=== PATIENT | female | born 1945 | race Caucasian/White ===

== ENCOUNTER 2016-09-13 17:17 | Emergency (ER) | payer OTHER, MEDICARE ==
[2016-09-13 17:28] VITALS: BP 119/88; PULSE 82; TEMP 97.4; BMI 29.0
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
== END 2016-09-13 20:37 | disposition home or self-care (01) ==
LOC: FER 17:17
DX: S09.90XA Unspecified injury of head, initial encounter (principal); V19.3XXA Pedal cyclist (driver) (passenger) injured in unspecified nontraffic accident, initial encounter; Y93.55 Activity, bike riding; Y92.410 Unspecified street and highway as the place of occurrence of the external cause; Z85.3 Personal history of malignant neoplasm of breast; G89.29 Other chronic pain
CPT/HCPCS: 70450-TC; 71020-TC; 71101-TC-RT; 72125-TC; 72170-TC; 73502-TC-RT; 99282-25

== ENCOUNTER 2016-11-01 07:04 | Day surgery (SDC) | payer OTHER, MEDICARE ==
[2016-10-30 13:10] VITALS: BMI 29.3
[2016-11-01] MEDS ORDERED: PROPOFOL 20 ML ONE (09:41)
[2016-11-01] MEDS ORDERED: ROCURONIUM BROMIDE 50 MG/5 ML VIAL ONE (09:42)
[2016-11-01] MEDS ORDERED: MIDAZOLAM HCL 2 MG/2 ML SINGLE DOSE VIAL ONE ×2 (09:42)
[2016-11-01] MEDS ORDERED: LIDOCAINE HCL/PF 2% SDV 5ML VIAL ONE (09:44)
[2016-11-01] MEDS ORDERED: ceFAZolin SODIUM 1 GM VIAL ONE (09:44)
[2016-11-01] MEDS ORDERED: ACETAMINOPHEN INJECTION 100 ML IVPB ONE (09:58)
[2016-11-01] MEDS ORDERED: GLYCOPYRROLATE 0.2 MG/1 ML VIAL ONE (11:11)
[2016-11-01] MEDS ORDERED: KETOROLAC TROMETHAMINE 30 MG/1 ML VIAL ONE (11:11)
[2016-11-01] MEDS ORDERED: ONDANSETRON 4 MG/2 ML VIAL ONE (11:11)
[2016-11-01] MEDS ORDERED: NEOSTIGMINE METHYLSULFATE 0.5 MG/ML - 10 ML MDV ONE (11:12)
[2016-11-01] MEDS ORDERED: ePHEDrine SULFATE 50 MG/1 ML AMPULE ONE (11:15)
[2016-11-01] MEDS ORDERED: ONDANSETRON 4 MG/2 ML VIAL IVPUSH PRN (11:44)
[2016-11-01] MEDS ORDERED: PROMETHAZINE HCL 25 MG/1 ML VIAL IVPUSH PRN (11:44)
[2016-11-01] MEDS ORDERED: LACTATED RINGERS SOLUTION 1,000 ML IV SCH (11:45)
[2016-11-01] MEDS ORDERED: ACETAMINOPHEN 1000 MG/100 ML VIAL (NON FORMULARY) IVPB ONE (14:00)
[2016-11-01] MEDS ORDERED: morphine CARPU-JECT 4 MG/1 ML DISP.SYRIN IVPB PRN (15:29)
[2016-11-01] MEDS ORDERED: D5-1/2NS+20 MEQ KCL - 1,000 ML IV SCH (15:30)
[2016-11-01] MEDS ORDERED: KETOROLAC TROMETHAMINE 15 MG/ML VIAL IVPUSH PRN (15:30)
[2016-11-01] MEDS ORDERED: oxyCODONE HCL 5 MG TABLET PO PRN (15:31)
[2016-11-01] MEDS ORDERED: ACETAMINOPHEN 325 MG TABLET (FP) PO PRN (16:00)
[2016-11-01] MEDS: FAMOTIDINE 20 MG TABLET PO SCH (21:39)
[2016-11-02 06:43] VITALS: BP 93/58; PULSE 50; TEMP 98.5
[2016-11-02] MEDS: FAMOTIDINE 20 MG TABLET PO SCH (09:29)
[2016-11-02] MEDS ORDERED: ENOXAPARIN NA (PORCINE) 40 MG/0.4 ML DISP.SYRIN SQ SCH (10:00)
--- NOTE | 2016-11-04 10:46 | OP ---
DATE OF OPERATION: 11/01/2016 PREOPERATIVE DIAGNOSIS: Gallbladder mass. POSTOPERATIVE DIAGNOSIS: Gallbladder mass. PROCEDURE: Laparoscopic cholecystectomy, peritoneal lavage. SURGEON: Bertram Roman MD BAG PRESSER: Roderick Shafer MD ANESTHESIA: Jeffrey Madsen MD (general), ESTIMATED BLOOD LOSS: Minimal. SPECIMEN: None. DESCRIPTION OF PROCEDURE: This is a 71-year-old female who on routine workup for other issues was noted to have a mass in her gallbladder. She is here today for a laparoscopic cholecystectomy. Patient was identified and appropriately positioned on the operating room table. After placement of general anesthesia, the abdomen was prepped and draped in the usual sterile fashion with ChloraPrep. An infraumbilical incision was made deep into the subcutaneous tissues. The fascia was divided sharply, the peritoneum incised, and under direct vision, a Veress needle followed by a structural needle placed. The remaining three were placed under direct vision, as well. . The gallbladder was identified in the right upper quadrant. It was reflected over the dome of the liver in standard fashion. Going from lateral to medial, the neck and the infundibulum of the gallbladder were identified, followed by the cystic duct. The cystic duct was circumferentially isolated, clipped, and then subsequently divided. The cystic artery was identified in a similar fashion, isolated, clipped, and then divided. The gallbladder itself was removed from the liver bed with electrocautery. Prior to complete removal, the liver bed was irrigated, the operative field examined, noted to be hemostatic. The ports were removed. Port sites were hemostatic. The specimen was brought out through the umbilical port site. The fascia at the umbilical port site was reapproximated with interrupted 0 Vicryl suture. All skin closed with 4-0 subcuticular Biosyn followed by Dermabond. At the conclusion of the case, sponge and instrument counts were correct. ATTESTATION: Brief operative note handwritten on the preprinted form. [facility] queried prior to giving any narcotics. Vandana BARKER [id number] cc: MD Zane Pérez MD
--- NOTE | 2016-11-04 12:55 | PATH ---
Surgical Pathology Report Patient Name: LESLIE CROOK [facility]. Rec. #: [id number] /Age/Gender: 1945 (Age: 71) / F Account: [id number] Location: [facility] Taken: 11/01/2016 Received: 11/01/2016 Reported: 11/04/2016 Physicians: Bertram Roman Specimen(s) Received GALLBLADDER WITH POSSIBLE MASS Clinical History Gallbladder mass Final Diagnosis GALLBLADDER WITH POSSIBLE MASS, CHOLECYSTECTOMY: GALLBLADDER SHOWING CHRONIC CHOLECYSTITIS AND ADENOMYOMATOUS HYPERPLASIA. Electronically Signed Jessica Shen M.D. Gross Description Received in formalin, labeled "gallbladder possible mass," is a 7.5 x 2.5 x 2.2 cm. gallbladder with a 0.2 cm. in length portion of cystic duct attached. The outer surface is elise-yellow and varies from smooth to shaggy. The lumen contains green, tenacious bile. No choleliths are identified. The mucosa is elise-green and velvety. The gallbladder fundus displays a 1.4 x 1.1 cm cystic lesion. The wall of the gallbladder averages 0.1 cm. in thickness. Sustainability Engineer sections are submitted in 3 cassettes as follows: 1-cystic duct margin and outside sales account representative mucosa; 2-3-fundic lesion. 11/01/201611/01/2016
== END 2016-11-02 11:00 | disposition home or self-care (01) ==
LOC: FASU 07:04 → FM/S 14:36 → FASU 11-02 11:00
PROVIDERS: ATTEND Surgery
PROC: 0FT44ZZ Resection of Gallbladder, Percutaneous Endoscopic Approach (ICD-10-PCS; principal; 2016-11-01 11:01)
DX: K82.8 Other specified diseases of gallbladder (principal)
CPT/HCPCS: 88304-TC; 94760

== ENCOUNTER 2018-10-07 06:07 | Inpatient (IN) | payer OTHER, MEDICARE ==
[2018-10-05 08:47] VITALS: BMI 29.9
[2018-10-07] MEDS ORDERED: PROPOFOL 20 ML ONE (07:14)
[2018-10-07] MEDS ORDERED: fentaNYL CITRATE 250 MCG/5 ML VIAL ONE (07:14)
[2018-10-07] MEDS ORDERED: DEXAMETHASONE SOD PHOSPHATE 4 MG/1 ML VIAL ONE (07:14)
[2018-10-07] MEDS ORDERED: ONDANSETRON 4 MG/2 ML VIAL ONE (07:14)
[2018-10-07] MEDS ORDERED: LIDOCAINE HCL/PF 2% SDV 5ML VIAL ONE (07:14)
[2018-10-07] MEDS ORDERED: ROCURONIUM BROMIDE 50 MG/5 ML VIAL ONE ×2 (07:14→08:34)
[2018-10-07] MEDS ORDERED: SUCCINYLCHOLINE CHLORIDE 200 MG/10 ML VIAL ONE (07:14)
[2018-10-07] MEDS ORDERED: BUPIVACAINE LIPOSOME/PF (EXPAREL) 266 MG/20 ML VIAL ONE (07:34)
[2018-10-07] MEDS ORDERED: MIDAZOLAM HCL 2 MG/2 ML SINGLE DOSE VIAL ONE (07:34)
[2018-10-07] MEDS ORDERED: BUPIVACAINE HCL/PF (5 MG/ML) 30 ML VIAL IJ ONE (07:34)
[2018-10-07] MEDS ORDERED: ceFAZolin SODIUM 1 GM VIAL ONE (08:20)
[2018-10-07] MEDS ORDERED: ePHEDrine SULFATE 50 MG/1 ML AMPULE ONE (08:22)
[2018-10-07] MEDS ORDERED: GLYCOPYRROLATE 0.2 MG/1 ML VIAL ONE (09:13)
[2018-10-07] MEDS ORDERED: NEOSTIGMINE METHYLSULFATE 0.5 MG/ML - 10 ML MDV ONE (09:13)
--- NOTE | 2018-10-07 10:59 | OP ---
DATE OF OPERATION: 10/07/2018 PREOPERATIVE DIAGNOSIS: Chronically incarcerated symptomatic left Spigelian hernia. POSTOPERATIVE DIAGNOSIS: Chronically incarcerated symptomatic left Spigelian hernia. PROCEDURE: Open left-sided component separation, repair of left incarcerated Spigelian hernia with mesh, 7 cm intermediate wound closure. SURGEON: Bertram Roman MD PENSIONHOLDER INFORMATION CLERK: Roderick Shafer MD ANESTHESIA: Cristine Ji MD (general). ESTIMATED BLOOD LOSS: Minimal. SPECIMEN: None. INDICATIONS FOR PROCEDURE: This is a 73-year-old female with a slight protrusion and discomfort in the left side of her abdomen. She underwent a CAT scan that demonstrated findings consistent with a Spigelian hernia. She is now here for operative repair. PROCEDURE: Patient identified and appropriately positioned on the operating room table after placement of general anesthesia and prepped and draped in the usual sterile fashion with ChloraPrep. A 7 cm left oblique incision was made in the lower abdomen deepened to the subcutaneous tissue. The fascia of the external oblique identified, divided in the direction of its fibers. Next, the oblique was then lifted off the oblique musculature with blunt dissection toward the midline. At the level going toward the midline, it was significantly scarred due to a previous lower midline laparotomy scar. This dissection went medial and lateral. Next, the external oblique along with the internal oblique muscle was then subsequently split and it was obvious once this was accomplished that the patient had an incarcerated Spigelian hernia. This reduced back in through the defect very easily at this point, since the patient was under general anesthesia. The internal oblique muscle now lifted and dissection laterally ensued towards the folding/inguinal ligament of the external oblique. Medially, this was then taken again towards the rectus and at this juncture a mild fascial separation was performed to allow separation of the transversus fascia and oblique fascia from the rectus fascia. This was done approximately 4 inches above and below the defect. The transversalis and transversus was significantly attenuated in this lady; however, the transversalis fascia superiorly at the semi-lunar line was easily identified. Inferiorly, this was markedly attenuated and was subsequently grasped with an Allis clamp. The 2 attenuated pieces of fascia were then reapproximated with interrupted 3-0 PDS suture. The space deep to the obliques just above the transversus was further developed and the myofascial separation that was performed was reevaluated. The area was hemostatic. A piece of phasics was sewn to a 15 x 15 piece of ProGrip. The 2 were sewn with interrupted 3-0 Vicryl sutures. The phasics was placed on the transversalis side and the ProGrip was placed with the reference assistant up towards the obliques. This was placed into the space. Once it was fanned out and covered the defect well, the patient was placed through several Valsalva maneuvers to sit the mesh. Next, the musculature overlying the mesh was then allowed to cover the mesh (it was previously split, but not divided). Next, the fascia of the obliques was already off the musculature and another 15 x 15 piece of ProGrip was placed with the park interpretive specialist side on towards the muscle surface. The fascia of the external oblique was then reapproximated with a running 0 PDS suture. The subcutaneous space irrigated. Daniel reapproximated with interrupted inverted 3 -0 chromic sutures and the skin closed with 4-0 simple interrupted Biosyn, followed by Dermabond. Length of the incision approximately 7 cm. At the conclusion of this case, sponge and needle counts were correct. ATTESTATION: Brief Op Note handwritten on the preprinted form. [facility] queried prior to giving narcotics. Vandana BARKER [id number] MTDD
[2018-10-07] MEDS ORDERED: morphine SULFATE 4 MG/ML VIAL IVPB PRN (11:06)
[2018-10-07] MEDS ORDERED: oxyCODONE HCL 5 MG TABLET PO PRN (11:06)
[2018-10-07] MEDS ORDERED: ONDANSETRON 4 MG/2 ML VIAL IVPUSH PRN (11:06)
[2018-10-07] MEDS ORDERED: SODIUM CHLORIDE 1,000 ML IV SCH (11:15)
[2018-10-07] MEDS ORDERED: LACTATED RINGERS SOLUTION 1,000 ML IV SCH (11:15)
[2018-10-07] MEDS: ACETAMINOPHEN 325 MG TABLET (FP) PO PRN (14:37)
[2018-10-08 06:41] VITALS: TEMP 98.3
[2018-10-08] MEDS ORDERED: PANTOPRAZOLE SODIUM 40 MG VIAL IVPUSH SCH (10:00)
[2018-10-08] MEDS ORDERED: ENOXAPARIN NA (PORCINE) 40 MG/0.4 ML DISP.SYRIN SQ SCH (10:00)
[2018-10-08] MEDS: ACETAMINOPHEN 325 MG TABLET (FP) PO PRN (10:46)
[2018-10-08 11:40] VITALS: BP 95/48; PULSE 58
--- NOTE | 2018-10-09 07:06 | DS ---
DATE OF ADMISSION: 10/07/2018 DATE OF DISCHARGE: 10/08/2018 ADMITTING DIAGNOSIS: Complex ventral hernia. DISCHARGE DIAGNOSIS: Complex ventral hernia. BRIEF HISTORY: This is a 73-year-old female who was admitted to [facility] for surgical management of a complex ventral hernia. She was admitted on October 07, 2018, underwent complex repair of a ventral hernia with mesh utilizing component separation and myofascial release. Please reference Dr. Bertram Spain operative report. She was admitted on October 07. She is being discharged October 08. She is tolerating a regular diet. She is ambulating. She is voiding. She will go home with a prescription for Percocet which she will take as needed for pain. She is okay to shower. She will not to lift anything more than 20 pounds. She is okay to drive. She will likely take off 2 weeks for work. She will resume her home medications, and she will take her new prescription for Percocet. She will follow up with Dr. Bertram Roman in approximately 2 weeks time for a postoperative check. DO MANUELA BOB/[id number]
== END 2018-10-08 11:05 | disposition home or self-care (01) | DRG 355 ==
LOC: FASU 06:07 → FM/S 11:06 → UNDOADMIN 11:30
PROVIDERS: ADMIT Surgery; ATTEND Surgery
PROC: 0WUF0JZ Supplement Abdominal Wall with Synthetic Substitute, Open Approach (ICD-10-PCS; principal; 2018-10-07 08:31)
DX: K43.6 Other and unspecified ventral hernia with obstruction, without gangrene (principal); Z85.3 Personal history of malignant neoplasm of breast; M17.10 Unilateral primary osteoarthritis, unspecified knee; E78.5 Hyperlipidemia, unspecified; D35.00 Benign neoplasm of unspecified adrenal gland; H00.014 Hordeolum externum left upper eyelid
CPT/HCPCS: 94760; J7030

== ENCOUNTER 2019-05-13 19:22 | Emergency (ER) | payer OTHER, MEDICARE ==
[2019-05-13 19:30] VITALS: BP 115/77; PULSE 89; TEMP 98; BMI 29.0
--- NOTE | 2019-05-13 19:52 | PDOC ---
Documentation entered by Soledad Padron SCRIBE, acting as scribe for Kirill Eid MD. Kirill Eid MD: This documentation has been prepared by the Vito morgan Brenda, SCRIBE, under my direction and personally reviewed by me in its entirety. I confirm that the documentation accurately reflects all work , treatment, procedures, and medical decision making performed by me. History of Present Illness - General Chief Complaint: Injury Stated Complaint: INJURY Time Seen by Provider: 05/13/19 19:33 History Source: Patient Exam Limitations: No Limitations - History of Present Illness Initial Comments: 05/13/19 19:55 The patient is a 73 year old female, with a significant PMH of right mastectomy for breast cancer several years ago and a C7 fracture with chronic neck pain since 2011, who presents to the emergency department after a fall. Patient states she fell down her steps, striking her posterior right occipital area on a piece of round wood which she endorses pain to, and striking right buttocks on the floor. The patient denies neck pain, stating she has had neck traumas before. Denies chest pain, shortness of breath, headache and dizziness. Denies blurry vision, LOC. Denies fever, chills, nausea, vomiting, diarrhea and constipation. Denies any urinary symptoms. Allergies: NKA Past surgical history: Mastectomy. Social history: Denies any tobacco use, alcohol use, or illicit drug use. Lives alone General: No fevers or chills, no weakness, no weight loss HEENT: (+) Pain on right side of hind head. No change in vision. No sore throat ,. No ear pain CardioVascular: No chest pain or shortness of breath Respiratory:No cough, or wheezing. Gastrointestinal: no nausea, vomiting, diarrhea or constipation, No rectal bleeding Genitourinary: No dysuria, hematuria, or frequency Musculoskeletal: No joint or muscle pain or swelling Neurologic: No headache, vertigo, dizziness or loss of consciousness Psychiatric: nor depression Skin: No rashes or easy bruising Endocrine: no increased thirst or abnormal weight change Allergic: no skin or latex allergy All other systems reviewed and normal GENERAL: The patient is awake, alert, and fully oriented, in no acute distress. HEAD: Normal with no signs of trauma. EYES: Pupils equal, round and reactive to light, extraocular movements intact, sclera anicteric, conjunctiva clear. EXTREMITIES: Normal range of motion, no edema. PSYCH: Normal mood, normal affect. SKIN: Warm, Dry, normal turgor, no rashes or lesions noted. NEURO: (+) Tenderness to palpation on right posterior occipital area. No Cervical Spine tenderness Mental status: The patient alert and is oriented x3. Cranial nerves: Cranial nerves II through XII are intact Fundoscopic exam normal Motor: The upper extremities are 5 over 5 in all muscle groups. The lower extremities are 5 over 5 in all muscle groups. Sensation: Sensation is intact to light touch throughout. Cerebellar: [id number] is normal in both upper extremities. Heel-knee- he is normal in both lower extremities. Gait: Normal. Heel and toe walking are normal. Tandem gait is normal. 05/14/19 20:27 Assessment plan: This is 73-year-old female who comes in post slipping on the stairs falling backward and hitting her head on the wood railing of the steps. Patient did not pass out. Patient denies any headache, neck pain or neurological complaints. On my exam there is no contusion or abrasion of the scalp where she hit her head there was some mild bony tenderness There was no tenderness of the cervical spine. Patient discharged we will follow-up with her primary care doctor. Past History - Past Medical History Allergies/Adverse Reactions: Allergies Allergy/AdvReac Type Severity Reaction Status Date / Time No Known Drug Allergies Allergy Verified 10/05/18 08:41 No Known Allergies Allergy Uncoded 10/05/18 08:41 Home Medications: Ambulatory Orders NK [No Known Home Medication] 05/13/19 Anemia: No Asthma: No Cancer: Yes (RIGHT BREAST-2012) Cardiac Disorders: No CVA: No COPD: No CHF: No Dementia: No Diabetes: No GI Disorders: No Disorders: No HTN: No Hypercholesterolemia: No Liver Disease: No Seizures: No Thyroid Disease: No - Surgical History Abdominal Surgery: Yes (C- SECTION X 1) Appendectomy: No Cardiac Surgery: No Cholecystectomy: Yes Lung Surgery: No Neurologic Surgery: No Orthopedic Surgery: No - Psycho Social/Smoking Cessation Hx Smoking History: Never smoked Have you smoked in the past 12 months: No If you are a former smoker, when did you quit?: 1985 Hx Alcohol Use: Yes (1 GLASS WINE DAILY) Drug/Substance Use Hx: No Substance Use Type: Alcohol Hx Substance Use Treatment: No *Physical Exam - Vital Signs Last Vital Signs Temp Pulse Resp BP Pulse Ox 98 F 89 16 115/77 96 05/13/19 19:27 05/13/19 19:27 05/13/19 19:27 05/13/19 19:27 05/13/19 19:27 Discharge - Discharge Information Problems reviewed: Yes Clinical Impression/Diagnosis: Fall (on) (from) other stairs and steps, initial encounter Contusion of scalp Qualifiers: Encounter type: initial encounter Qualified Code(s): S00.03XA - Contusion of scalp, initial encounter Condition: Stable Disposition: HOME - Admission No - Follow up/Referral - Patient Discharge Instructions Additional Instructions: For the pain take Tylenol 1000 mg as often this 3-4 times a day if needed. Return to the emergency department immediately with ANY new, persistent or worsening symptoms. Specifically any vomiting, headache, nausea, blurry vision or difficulty concentrating. Continue any medications as previously prescribed by your physician. You should follow up with your primary doctor as soon as possible regarding today's emergency department visit. . Please make sure your doctor reviews the results of your emergency evaluation. Thank you for coming to the Emergency Department today for your care. It was a pleasure to see you today. Please note that your evaluation is INCOMPLETE until you follow-up with your doctor. - Post Discharge Activity
== END 2019-05-13 19:59 | disposition home or self-care (01) ==
LOC: FER 19:22
DX: S00.03XA Contusion of scalp, initial encounter (principal); Z85.3 Personal history of malignant neoplasm of breast; Z90.11 Acquired absence of right breast and nipple; W10.9XXA Fall (on) (from) unspecified stairs and steps, initial encounter; Y93.89 Activity, other specified; Y92.9 Unspecified place or not applicable
CPT/HCPCS: 99281-25

== ENCOUNTER 2020-01-12 13:21 | Emergency (ER) | payer OTHER, MEDICARE ==
[2020-01-12 13:30] VITALS: BP 101/70; PULSE 73; TEMP 98.5; BMI 29.0
--- NOTE | 2020-01-12 13:45 | PDOC ---
History of Present Illness - General Chief Complaint: Headache Stated Complaint: EVALUATION OF HEADACHE Time Seen by Provider: 01/12/20 13:41 History Source: Patient Exam Limitations: No Limitations - History of Present Illness Initial Comments: 01/12/20 13:43 HPI 74 YOF with h/o right mastectomy for breast cancer, T7 fracture and odontoid fx with chronic neck pain since 2011, arthritis presenting with right sided throbbing/pressure-like headache beginning last night approx 5pm in the evening. Pt states her headache is radiating from the right side of the head down to the ear and neck, worse with positional changes such as bending forward and down to tie her shoes; her headache was constant x 6 hours until approx 11PM when she went to bed after a dose of tylenol with improvement. Also in the evening she had a transient episode in her left eye where she saw a kaleidoscope, no association of pain or vision loss or curtain or swellling. This morning she had another episode of right sided headache, also described as throbbing and pressure-like, in the same distribution down her right face/ear and neck, worse with positional changes as well as the "kaleidoscope" in her left eye without associated visual changes. currently she states her headache is only 3-4/10, declining any analgesia at this time. she went to urgent care [facility], who referred her to the ED for further evaluation. Denies fever, chills, chest pain, SOB, palpitation, N, V, D, abdominal pain, bladder and bowel problems, focal weakness/paresthesias, speech difficulties, memory loss or gait instability, leg swelling/pain, rash. No sick contacts or travel. No new changes in medications. No suspicious food intake. No trauma. no infectious symptoms. Allergies: None Past Medical History/PSH: as above Social history: Lives with family. No tobacco, ETOH or drug use. Meds: none PMD: Dr Garber Review of systems Constitutional: no fevers or chills. No weakness HEENT: no dizziness. No congestion. No hearing disturbances. +headache. +ear pain, +left eye vision changes "kaleidoscope." CVS: no cp or syncope. Resp: no sob. No cough. Gastrointestinal: no abdominal pain, nausea, vomiting, diarrhea. Genitourinary: no urinary sx, hematuria. MUSCULOSKELETAL: No joint pain and swelling. No neck or back pain. SKIN: no redness or skin changes, no discharge, no rash. No wounds. Hematologic: no easy bruising/bleeding. NEUROLOGIC: No dizziness, LOC or altered mental status. No weakness, numbness or tingling. no gait instability, memory changes or speech difficulties. Allergic/Immunologic: no allergies All other systems reviewed and negative, or as documented in HPI. Physical exam General: Well appearing, awake and alert, NAD. HEENT: NCAT, PERRL, EOMI, clear conjunctiva, anicteric, moist mucus membranes, clear oropharynx, no oral lesions.. Neck: neck supple, FROM, no meningismus Resp: CTAB, normal and even respirations, no respiratory distress CVS: RRR, no murmurs, 2+ peripheral pulses throughout, no peripheral edema Abdomen: soft, NTND, no rebound or guarding. Back: nontender, normal inspection and ROM MSK: no edema, CHRISTIANSON x4, ROM intact. No clubbing or cyanosis. normal bulk and tone. Extremities: no calf tenderness Neuro: Alert, oriented to person time and place. No carotid bruit, CN II-XII grossly intact. Strength prox and distally 5/5 throughout. Sensation grossly intact to light touch. CHRISTIANSON x4. No cerebellar signs, no dysmetria, bilateral finger to nose and heel to he equal and symmetric. Speech clear. Psych: Calm and cooperative Skin: warm and well perfused, cap refill <2 sec, normal color, no rash or skin discoloration. 01/12/20 14:02 01/12/20 14:11 01/12/20 15:58 01/12/20 16:00 Past History - Medical History Allergies/Adverse Reactions: Allergies Allergy/AdvReac Type Severity Reaction Status Date / Time No Known Drug Allergies Allergy Verified 01/12/20 13:22 Home Medications: Ambulatory Orders NK [No Known Home Medication] 01/12/20 Anemia: No Asthma: No Cancer: Yes (RIGHT BREAST-2012) Cardiac Disorders: No CVA: No COPD: No CHF: No Dementia: No Diabetes: No GI Disorders: No Disorders: No HTN: No Hypercholesterolemia: No Liver Disease: No Seizures: No Thyroid Disease: No - Surgical History Abdominal Surgery: Yes (C- SECTION X 1) Appendectomy: No Cardiac Surgery: No Cholecystectomy: Yes Lung Surgery: No Neurologic Surgery: No Orthopedic Surgery: No - Psycho-Social/Smoking History Smoking History: Never smoked Have you smoked in the past 12 months: No If you are a former smoker, when did you quit?: 1985 Information on smoking cessation initiated: No - Substance Abuse Hx (Audit-C & DAST Scrn) How often the patient has a drink containing alcohol: 4 0r more times/wk Number of drinks the patient has on a typical day: 1 or 2 How often the patient has six or more drinks on one occasion: Never Score: In Men: 4 or > Positive; In Women: 3 or > Positive: 4 Screen Result (Pos requires Nsg. Audit-10AR): Positive In the last yr the pt used illegal drug/Rx for NonMed reason: No Score: Yes response is considered Positive: 0 Screen Result (Positive result requires Nsg. DAST-10): Negative *Physical Exam - Vital Signs Last Vital Signs Temp Pulse Resp BP Pulse Ox 98.5 F 73 16 101/70 97 01/12/20 13:22 01/12/20 13:22 01/12/20 13:22 01/12/20 13:22 01/12/20 13:22 Heart Score/ECG Review #1 ECG reviewed & interpreted by me at: 14:00 General ECG Interpretation: Sinus Rhythm, Normal Rate, Normal Intervals 01/12/20 14:08 EKG normal sinus rhythm 65 bpm, no interval abnormalities, narrow QRS, ST and T wave segments and morphology normal. ED Treatment Course - LABORATORY CBC & Chemistry Diagram: 01/12/20 13:55 01/12/20 13:55 - RADIOLOGY Radiology Studies Ordered: Category Date Time Status HEAD CT WITHOUT CONTRAST [CT] Stat CT Scan 01/12/20 13:42 Ordered Medical Decision Making - Medical Decision Making 01/12/20 14:08 Vital Signs Temp Pulse Resp BP Pulse Ox 98.5 F 73 16 101/70 97 01/12/20 13:22 01/12/20 13:22 01/12/20 13:22 01/12/20 13:22 01/12/20 13:22 DDX headache: migraine, tension, cluster headache, SAH, CVA, head bleed/ICH, temporal arteritis pt does not describe as "worst headache of life. doubt SAH clinically, neuro intact no e/o meningismus or meningitis or encephalitis. atraumatic. no HTN. no medical comorbidities to suggest CVA risk or vascular pathology no IC state, no active malignancy Headache since yesterday evening. There is not a history of anticoagulation, trauma, , cancer or immunocompromised state. Mental status was normal, no neurological deficits were noted. no meds requested, declined analgesia. CT head was negative for acute bleed, infarct, mass, or shift. no LP indicated at this time MDM: Based on the patient's history and physical there is very low clinical barron picion for significant intracranial pathology. The headache was NOT sudden onset, NOT maximal at onset, there are NO neurologic findings, the patient does NOT have a fever, the patient does NOT have any jaw claudication, the patient does NOT endorse a clotting disorder, patient DENIES any trauma or eye pain and the headache is NOT associated with dizziness or ataxia. Will treatment the patient symptomatically and reassess. Kernig and Brudzinski signs are negative, no petechiae, no photophobia, no dysarthria, no facial asymmetry, and no focal deficits. Very low clinical suspicion for meningitis. Patient denies new weakness on one side of the body, diplopia, vertigo, slurred speech, headache, or difficulty walking. 01/12/20 15:44 CT head without acute intracranial pathology, no evidence of mass lesion, infarction, fluid collection or bleed. CTA neck and brain without acute abnormality, arterial vasculature without evidence of stenosis or dissection. Vertebrobasilar and carotid circulations are also unremarkable without stenosis or occlusion. There is a old odontoid fracture that is noted Laboratory results are reviewed within normal limits. No elevation in inflammatory markers including ESR CRP, with ESR unremarkable this is very unlikely to be temporal arteritis Troponin is also negative, electrolytes CBC within normal limits, coags are also normal declines analgesia, gait is stable neurologically intact no focal deficits well appearing. more likely migraine type headache no indication of LP, doubt SAH. CTA as above pt states she had a closed head injury in 03/2019 as well as prior odontoid fx, which could also trigger post traumatic headache/concussive sx. Pt to be discharged in stable condition. Patient made aware of clinical impression, treatment recommendations and disposition plan, return precautions discussed (including but not limited to new or persistent/worsening symptoms, pain, fevers, or signs of infection, chest pain, respiratory distress, inability to tolerate oral intake, dehydration, syncope, or neurologic changes). Follow up with PMD and/or neurologic specialist as recommended, follow up information provided, take medications as instructed for duration of time. continue with supportive care, avoid triggers and precipitants. All questions answered to patient's satisfaction and expressed understanding and comfort with this. At the time of discharge, the patient is alert, clinically improved, tolerating po and verbalizes understanding of instructions, satisfied with the care received and felt comfortable with the plan. Patient does not suffer from an acute life- threatening medical condition at this time and is safe for outpatient follow- up. 01/12/20 15:45 01/12/20 15:56 01/12/20 15:58 01/12/20 15:59 Discharge - Discharge Information Problems reviewed: Yes Clinical Impression/Diagnosis: Headache Qualifiers: Headache type: unspecified Headache chronicity pattern: acute headache Intractability: not intractable Qualified Code(s): R51 - Headache Condition: Stable Disposition: HOME - Admission No - Follow up/Referral Referrals: Milo Garber MD [Primary Care Provider] - Kwabena Burrell MD [Staff Physician] - Bulmaro Jamison MD [Staff Physician] - Yovani Davis MD [Staff Physician] - - Patient Discharge Instructions Patient Printed Discharge Instructions: DI for Migraine, DI for Headache Additional Instructions: 1) Please follow-up with your primary care doctor in the next 1-2 days. Please call tomorrow for for any urgent issues. Neurologists followup have been provided for evaluation of your headache, which appears to be a migraine 2) You were given a copy of the tests performed today. Please bring the results with you and review them with your primary care doctor. Your laboratory / imaging results were normal, including your CT scans of your head 3) If you have any worsening of symptoms or any other concerns please return to the ED immediately. Return if worsening symptoms including fevers, headache, vomiting, visual or hearing disturbances, abdominal pain, chest pain, shortness of breath, syncope, dehydration, inability to take things by mouth/vomiting, altered mental status, or worsening concerning symptoms. avoid stressors triggers. get up slowly, avoid heavy or strenous movements. Stay well hydrated and rest adequately. Make an appointment. If you cannot follow-up with your primary care doctor please return to the ED - Post Discharge Activity
[2020-01-12 14:26] LABS: ALBUMIN 4.3 g/dl (3.4-5.0); ALK PHOS 71 U/L (45-117); ANION GAP 8 MMOL/L (8-16); BILIRUBIN,TOTAL 0.9 mg/dl (0.2-1); CHLORIDE 106 mmol/L (98-107); CO2 26 mmol/L (21-32); CREATININE 0.6 mg/dl (0.55-1.3); GLUCOSE,RANDOM 122 mg/dl (74-106); POTASSIUM 3.9 mmol/L (3.5-5.1); SGOT/AST 24 U/L (15-37); SGPT/ALT 29 U/L (13-61); SODIUM 140 mmol/L (136-145); TOT PROT 6.9 g/dl (6.4-8.2)
[2020-01-12 14:31] LABS: INR 1.06 (0.82-1.09); PROTHROMBIN TIME (PATIENT) 11.8 SEC (10.2-13.0)
[2020-01-12 14:36] LABS: BASO % 0.8 % (0-2.0); EOS % 1.7 % (0-4.5); HEMATOCRIT 42.4 % (32.4-45.2); HEMOGLOBIN 14.4 GM/dl (10.7-15.3); LYMPH % 33.2 % (8-40); MCH 29.9 pg (25.7-33.7); MCHC 33.9 g/dl (32.0-36.0); MEAN CELL VOLUME 88.2 fl (80-96); MEAN PLT VOLUME 10.5 fl (7.5-11.1); MONO % 7.9 % (3.8-10.2); NEUT % 56.4 % (42.8-82.8); PLATELET COUNT 183 K/MM3 (134-434); RBC 4.81 M/mm3 (3.60-5.2); RDW 12.8 % (11.6-15.6); WHITE BLOOD COUNT 5.9 K/mm3 (4.0-10.8)
--- NOTE | 2020-01-13 17:40 | EKG ---
Test Reason : Blood Pressure : / mmHG Vent. Rate : 065 BPM Atrial Rate : 065 BPM P-R Int : 200 ms QRS Dur : 096 ms QT Int : 412 ms P-R-T Axes : 042 030 032 degrees QTc Int : 428 ms NORMAL SINUS RHYTHM NORMAL ECG NO PREVIOUS ECGS AVAILABLE Confirmed by SAMANTHA ARCHULETA MD ([id number]) on 01/13/2020 5:40:20 PM Referred By: UNA DIXON Confirmed By:SAMANTHA ARCHULETA MD
== END 2020-01-12 16:10 | disposition home or self-care (01) ==
LOC: FER 13:21
DX: R51 Headache (principal)
CPT/HCPCS: 36415; 70450-TC; 70496-TC; 70498-TC; 80053; 82550; 84484; 85025; 85610; 85651; 85730; 86140; 93005; 99285-25

== ENCOUNTER 2021-01-20 11:00 | Emergency (ER) | payer OTHER, MEDICARE ==
[2021-01-20 11:09] VITALS: BMI 29.0
[2021-01-20 12:48] LABS: BASO % 3.9 % (0-2.0); HEMATOCRIT 44.7 % (32.4-45.2); HEMOGLOBIN 14.6 GM/dl (10.7-15.3); LYMPH % 38.5 % (8-40); MCH 29.6 pg (25.7-33.7); MCHC 32.7 g/dl (32.0-36.0); MEAN CELL VOLUME 90.8 fl (80-96); MEAN PLT VOLUME 9.4 fl (7.5-11.1); MONO % 10.8 % (3.8-10.2); NEUT % 44.8 % (42.8-82.8); PLATELET COUNT 142 10^3/uL (134-434); RBC 4.93 M/mm3 (3.60-5.2); WHITE BLOOD COUNT 5.5 K/mm3 (4.0-10.8)
[2021-01-20 13:03] LABS: ALBUMIN 4.2 g/dl (3.4-5.0); ALK PHOS 66 U/L (45-117); ANION GAP 5 MMOL/L (8-16); BILIRUBIN,TOTAL 1.2 mg/dl (0.2-1); CALCIUM 9.8 mg/dl (8.5-10); CHLORIDE 107 mmol/L (98-107); CO2 26 mmol/L (21-32); CREATININE 0.6 mg/dl (0.55-1.3); GLUCOSE,RANDOM 93 mg/dl (74-106); SGOT/AST 26 U/L (15-37); SGPT/ALT 18 U/L (13-61); SODIUM 138 mmol/L (136-145); TOT PROT 6.6 g/dl (6.4-8.2)
[2021-01-20 14:40] VITALS: BP 115/71; PULSE 78; TEMP 97.8
== END 2021-01-20 15:35 | disposition home or self-care (01) ==
LOC: FER 11:00
DX: R07.9 Chest pain, unspecified (principal)
CPT/HCPCS: 36415; 71046-TC-FY; 80053; 84484; 85025; 93005; 99285-25

== ENCOUNTER 2021-01-22 15:39 | Emergency (ER) | payer OTHER, MEDICARE ==
[2021-01-22 15:44] VITALS: BP 126/89; PULSE 75; TEMP 98.7; BMI 29.0
[2021-01-22] MEDS ORDERED: DIPHTH,PERTUSS(ACELL),TET 0.5 ML DISP.SYRIN IM ONE ×2 (16:11→16:24)
== END 2021-01-22 17:10 | disposition home or self-care (01) ==
LOC: FER 15:39
PROC: 3E0234Z Introduction of Serum, Toxoid and Vaccine into Muscle, Percutaneous Approach (ICD-10-PCS; principal; 2021-01-22)
PROC: 0HQFXZZ Repair Right Hand Skin, External Approach (ICD-10-PCS; principal; 2021-01-22)
DX: S61.411A Laceration without foreign body of right hand, initial encounter (principal); W26.8XXA Contact with other sharp object(s), not elsewhere classified, initial encounter
CPT/HCPCS: 90471; 90715; 99282-25

== ENCOUNTER 2021-02-02 11:55 | Emergency (ER) | payer OTHER, MEDICARE ==
[2021-02-02 12:10] VITALS: BP 105/67; PULSE 60; TEMP 98.6; BMI 29.0
== END 2021-02-02 12:50 | disposition home or self-care (01) ==
LOC: FER 11:55
DX: Z48.02 Encounter for removal of sutures (principal)
CPT/HCPCS: 99281-25

== ENCOUNTER 2024-02-09 15:00 | Emergency (ER) | payer OTHER, MEDICARE ==
[2024-02-09 15:13] VITALS: BP 120/74; PULSE 64; RESP 15; TEMP 98.2; BMI 29.0
[2024-02-09] MEDS ORDERED: ASPIRIN 81 MG CHEWABLE TABLETS ONE (16:36)
[2024-02-09] MEDS: ASPIRIN 81 MG CHEWABLE TABLETS PO ONE (16:44)
[2024-02-09 17:13] LABS: ALBUMIN 4.7 g/dl (3.4-5.0); BILIRUBIN,TOTAL 0.8 mg/dl (0.2-1); CALCIUM 10.7 mg/dl (8.5-10.1); CREATININE 0.7 mg/dl (0.6-1.3); POTASSIUM 4.4 mmol/L (3.5-5.1); TOT PROT 6.6 g/dl (6.4-8.2)
== END 2024-02-09 17:00 | disposition left against medical advice (07) ==
LOC: FER 15:00
DX: R07.89 Other chest pain (principal)
CPT/HCPCS: 36415; 71046-TC-FY; 80053; 82550; 84484; 93005; 99285-25

== ENCOUNTER 2024-12-21 16:19 | Emergency (ER) | payer OTHER, MEDICARE ==
[2024-12-21 16:35] VITALS: BP 110/75; PULSE 73; RESP 18; TEMP 98.6; BMI 29.0
[2024-12-21 17:04] LABS: EPITHELIAL CELLS FEW /hpf
[2024-12-21 17:16] LABS: ABSOLUTE IMMATURE GRANULOCYTES 0.01 x10^3/uL (0.0-0.031); BASOPHILS # 0.03 x10^3/uL (0.01-0.08); EOSINOPHIL % 1.6 % (0.7-5.8); EOSINOPHILS # 0.08 x10^3/uL (0.04-0.36); HEMATOCRIT 44.4 % (34.1-44.9); HEMOGLOBIN 14.1 g/dL (11.2-15.7); MCHC 31.8 g/dl (32.2-35.5); MEAN CELL VOLUME 93.1 fl (79.4-94.8); MEAN PLT VOLUME 11.3 fl (9.4-12.3); MONOCYTE # 0.62 x10^3/uL (0.24-0.86); MONOCYTE % 12.8 % (4.7-12.5); PLATELET COUNT 181 x10^3/uL (182-369); RDW 12.9 % (12.4-16.6)
[2024-12-21 18:04] LABS: ALBUMIN 4.3 g/dl (3.4-5.0); BILIRUBIN,TOTAL 0.6 mg/dl (0.2-1); CALCIUM 10.6 mg/dl (8.5-10.1); CREATININE 0.7 mg/dl (0.6-1.3); MAGNESIUM 2.2 mg/dL (1.8-2.4); POTASSIUM 4.2 mmol/L (3.5-5.1); TOT PROT 6.8 g/dl (6.4-8.2)
[2024-12-21 19:31] LABS: HIV INTERPRETATION NEGATIVE (NEGATIVE)
[2024-12-21 19:32] LABS: HCV DIAGNOSTIC IN-HOUSE W/RFLX NON-REACTIVE (NONREACTIVE)
== END 2024-12-21 18:51 | disposition home or self-care (01) ==
LOC: FER 16:19
DX: R53.81 Other malaise (principal); R63.8 Other symptoms and signs concerning food and fluid intake; R53.83 Other fatigue; R00.1 Bradycardia, unspecified; M79.10 Myalgia, unspecified site
CPT/HCPCS: 36415; 71045-TC-FY; 80053; 81003; 81015; 82550; 82930; 83690; 83735; 84443; 84484; 85025; 86803; 87086; 87207; 87389; 87633; 87798; 93005; 99285-25